=== PATIENT | female | born 1970 | race Asian ===

== ENCOUNTER 2020-03-11 23:48 | Emergency (ER) | payer BC ==
[~2020-03-11] VITALS: Ht 147.3 cm; Wt 49.6 kg
[2020-03-12] MEDS ORDERED: hydrOXyzine 50MG TABLET PO ONE (01:30)
[2020-03-12] MEDS ORDERED: hydrOXyzine 50MG TABLET ONE (01:33)
[2020-03-12 01:35] VITALS: BP 121/79
--- NOTE | 2020-03-12 01:35 | NUR ---
TASK RN: PT MEDICATED PER EMAR
== END 2020-03-12 02:00 | disposition home or self-care (01) ==
LOC: ED 03-12 01:00
DX: R07.89 Other chest pain (principal); F41.1 Generalized anxiety disorder
CPT/HCPCS: 93005; 99283